=== PATIENT | female | born 2000 | race Caucasian/White ===

== ENCOUNTER 2024-11-29 12:48 | Emergency (ER) | payer MEDICAID, SELFPAY ==
[2024-11-29 12:59] VITALS: BP 112/69; PULSE 109; RESP 20; TEMP 37.1; O2SAT 100
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
== END 2024-11-29 13:22 | disposition home or self-care (01) ==
PROVIDERS: Emergency Provider Nurse Practitioner Family
DX: T21.22XA Burn of second degree of abdominal wall, initial encounter (principal); X19.XXXA Contact with other heat and hot substances, initial encounter; F19.939 Other psychoactive substance use, unspecified with withdrawal, unspecified
CPT/HCPCS: 99203; G0463

== ENCOUNTER 2024-12-12 17:19 | Emergency (ER) | payer MEDICAID, SELFPAY ==
[2024-12-12 17:33] VITALS: BP 119/68; PULSE 113; RESP 16; TEMP 36.8; O2SAT 100
--- NOTE | 2024-12-12 18:33 | ED_ITS ---
HPI - General Adult General Chief complaint: Unspecified Stated complaint: Medicaid Refill Source: patient and family Mode of arrival: ambulatory Limitations: no limitations History of Present Illness HPI narrative: Patient presents requesting a refill on her Pristiq. She has a history of anxiety, depression, borderline personality disorder. [place] and is attempting to establish care with psychiatry. Her 1st appointment with them is in 3 weeks. She ran out of her Pristiq 2 days ago. In the past she has gone through withdrawal. She does not feel like she is actively withdrawing. She denies any suicidal or homicidal ideations. Related Data Allergies Allergy/AdvReac Type Severity Reaction Status Date / Time No Known Allergies Allergy Unknown Unverified 11/29/24 12:53 Review of Systems Review of Systems: CONSTITUTIONAL: Denies fever, chills, or sweats. EYES: Denies visual changes, redness, or discharge. ENT: Denies rhinorrhea, congestion, sore throat, or otalgia. CARDIOVASCULAR: Denies chest pain, palpitations, or edema. RESPIRATORY: Denies cough or dyspnea. GASTROINTESTINAL: Denies abdominal pain, nausea, vomiting, or diarrhea. GENITOURINARY: Denies dysuria or hematuria. SKIN: Denies rash or itching. MUSCULOSKELETAL: Denies back pain, joint pain, or myalgia. NEUROLOGIC: Denies headache, numbness, dizziness, or weakness. PSYCHIATRIC: Denies anxiety or depression. PMFSH Past Medical History Medical History Borderline personality disorder Depression Anxiety Surgical History Surgical History No pertinent past surgical history Family History Family History Mother Unknown family medical history Social History Social History Alcohol intake: current Alcohol use details: three drinks per episode, three episodes per week Substance use: current Substance use type: marijuana Gender identity (if verbalized by the patient): Female Spiritual care concerns: No Exam Narrative: GENERAL: Well-appearing, well-nourished, and in no acute distress. HEAD: Normocephalic, atraumatic. EYES: PERRLA and EOMI. ENT: Nares clear, no rhinorrhea or epistaxis. Mucous membranes moist. Oropharynx without tonsillar hypertrophy exudate or other lesions. Bilateral T Ms pearly saab nonbulging NECK: Supple. No adenopathy or masses. No carotid bruits or JVD CHEST: Clear to auscultation. No respiratory distress. No wheezes rales or rhonchi HEART: Regular rate and rhythm. No murmur heard. Normal peripheral pulses. ABDOMEN: Soft, nontender, nondistended, normal active bowel sounds. EXTREMITIES: Normal range of motion. No edema. SKIN: Warm, dry, no rash. NEURO: No focal deficits. Alert and oriented x3. PSYCH: Normal mood and affect. Course Course Emergency Course: This is a 24-year-old female who presented requesting a refill on Pristiq. She has no acute psychotic features. I think this is reasonable request to hold her over until her appointment with psychiatry in 3 weeks. She is advised to go to the emergency department if she experiences any suicidal or homicidal thoughts. Patient in agreement with plan of care. Level of Care: Express Care Visit Vital Signs Vital signs: Vital Signs Temperature 36.8 C 12/12/24 17:33 Pulse Rate 113 H 12/12/24 17:33 Respiratory Rate 16 12/12/24 17:33 Blood Pressure 119/68 12/12/24 17:33 Pulse Oximetry 100 12/12/24 17:33 Oxygen Delivery Room Air 12/12/24 17:33 Temperature 36.8 C 12/12/24 17:33 Pulse Rate 113 H 12/12/24 17:33 Respiratory Rate 16 12/12/24 17:33 Blood Pressure 119/68 12/12/24 17:33 Pulse Oximetry 100 12/12/24 17:33 Oxygen Delivery Room Air 12/12/24 17:33 Medical Decision Making Vital Signs Vital Signs: Vital Signs Temperature 36.8 C 12/12/24 17:33 Pulse Rate 113 H 12/12/24 17:33 Respiratory Rate 16 12/12/24 17:33 Blood Pressure 119/68 12/12/24 17:33 Pulse Oximetry 100 12/12/24 17:33 Oxygen Delivery Room Air 12/12/24 17:33 Temperature 36.8 C 12/12/24 17:33 Pulse Rate 113 H 12/12/24 17:33 Respiratory Rate 16 12/12/24 17:33 Blood Pressure 119/68 12/12/24 17:33 Pulse Oximetry 100 12/12/24 17:33 Oxygen Delivery Room Air 12/12/24 17:33 Discharge Plan Discharge Clinical Impression: Medication refill Patient Disposition: Home Condition: Stable Instructions: Antibiotic Form, Medicine Refill (ED) Patient Language: Kiswahili Prescriptions: New desvenlafaxine 50 mg tablet extended release 24 hr 50 mg PO DAILY Qty: 30 0RF Follow-up/Referrals: Rolan Osborne MD [Physician, Family Practice] Time of Disposition: 18:34
== END 2024-12-12 18:39 | disposition home or self-care (01) ==
PROVIDERS: Emergency Provider Nurse Practitioner
DX: Z76.0 Encounter for issue of repeat prescription (principal); F41.8 Other specified anxiety disorders
CPT/HCPCS: 99211; G0463